=== PATIENT | male | born 1960 | race Caucasian/White ===

== ENCOUNTER 2020-05-26 07:49 | Emergency (ER) | payer BC ==
[2020-05-26] MEDS ORDERED: Acetaminophen/oxyCODONE 325-5 MG Tab PO ONE (08:23)
[2020-05-26] MEDS ORDERED: Ondansetron 4 MG Tab.DIS PO ONE (08:23)
[2020-05-26] MEDS ORDERED: Silver Sulfadiazine 1% Crm 50 GM Tube TOP ONE (08:24)
[2020-05-26] MEDS ORDERED: Bacitracin Oint 15 GM Tube TOP ONE (08:29)
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
== END 2020-05-26 09:20 | disposition home or self-care (01) ==
LOC: JD.ED 07:49
DX: T23.261A Burn of second degree of back of right hand, initial encounter (principal); T20.12XA Burn of first degree of lip(s), initial encounter; T20.14XA Burn of first degree of nose (septum), initial encounter; T20.16XA Burn of first degree of forehead and cheek, initial encounter; T20.10XA Burn of first degree of head, face, and neck, unspecified site, initial encounter; T23.102A Burn of first degree of left hand, unspecified site, initial encounter; I25.10 Atherosclerotic heart disease of native coronary artery without angina pectoris; Z95.5 Presence of coronary angioplasty implant and graft; Z79.01 Long term (current) use of anticoagulants; Z79.899 Other long term (current) drug therapy; X08.8XXA Exposure to other specified smoke, fire and flames, initial encounter
CPT/HCPCS: 16020; 99283; A9270; 99284